=== PATIENT | female | born 1995 | race Caucasian/White ===

== ENCOUNTER → 2017-12-19 14:33 | Outpatient (CLI) | payer OTHER, SELFPAY | DX: N61.0 Mastitis without abscess (principal) | CPT/HCPCS: 76642 ==

== ENCOUNTER 2017-12-19 16:14 | Observation (INO) | payer OTHER, SELFPAY ==
[2017-12-19] VITALS (8 sets, daily range): BP systolic 114–141; BP diastolic 71–99; PULSE 73–117; RESP 14–16; TEMP 36–36.7; O2SAT 94–100; BMI 24.5; BMI 24.7; BMI 24.8
--- NOTE | 2017-12-19 16:39 | ED.DCSUM_ITS ---
- ER Visit Summary Date of Service: 12/19/17 Chief Complaint: Breast abscess History of Present Illness: The patient is a 22 F who presents with a breast abscess. She has had pain in her right breast for the past 3 weeks she has been on antibiotics for 2 weeks, today she had an ultrasound which delineated the abscess. She has no fever or chills. No shortness of breath no rash other than the localized rash around her nipple. Physical Examination: Not appear in acute distress. Moist mucous membranes, no obvious facial deformity No C-spine tenderness supple neck. Regular rate and rhythm without any obvious murmurs Right breast shows cellulitis around her nipple, she has an embedded nipple ring which I cannot remove. She has induration of fluctuance medial to the nipple. Clear lungs bilaterally speaking in full sentences without any obvious respiratory distress Abdomen soft and nontender no guarding or rebound Moves all extremities without any difficulty or pain. Skin does not show any obvious rashes or lesions, no trauma. Emergency Department Course and Treatment: Patient was made n.p.o., she had been referred to Dr. Carmichael for surgery. I contact her in the OR. Labs are drawn. Patient has an IV, she is ready for incision and drainage. Unasyn was given. Disposition: Admit to the operating room in stable condition Impression: Right breast abscess This note was generated with [employer] dictation software. It may contain incorrect words, spelling, and punctuation that were not noted in review of the chart prior to signing ED Disposition - Plan for ED Patient: Chief Complaint: Abscess Referrals: Care Physician,No Primary [Primary Care Provider] -
[2017-12-19 16:48] LABS: Absolute Lymphocyte Count 1.95 X10^3/ul (0.83-4.51); Absolute Neutrophil Count 5.5 X10^3/uL (2.0-7.7); Basophil# 0.03 X10^3/uL; Basophil% 0.3 % (0-1); Eosinophil# 0.31 X10^3/uL; Eosinophils% 3.5 % (0-5); Hematocrit 37.9 % (37-47); Lymphocyte # 1.95 X10^3/ul (4.0); Lymphocyte % 22.1 % (19-41); Mean Corp Hgb Conc 34.3 g/gl (32-36); Mean Corpuscular Hgb 26.9 pg (27.0-32.0); Mean Corpuscular Volume 78.3 fL (81-99); Mean Platelet Vol. 9.8 fl (6.2-12.0); Monocyte# 1.01 X10^3/uL; Monocyte% 11.4 % (0-10); Neutrophil # 5.53 X10^3/uL (2.7-7.7); Neutrophil % 62.6 % (47-70); Platelet Count 218 K/mm3 (150-450); RBC Distribution Width SD 36.7 fl (35.1-43.9); Red Blood Count 4.84 M/mm3 (4.2-5.4); White Blood Count 8.8 K/mm3 (4.4-11.0)
[2017-12-19 16:51] LABS: POSITIVE COUNT NO; POSITIVE DIFFERENTIAL NO; POSITIVE MORPHOLOGY NO
[2017-12-19 16:59] LABS: AST(SGOT) 11 U/L (15-37); Alanine Aminotransfer ALT/SGPT 16 U/L (13-56); Albumin, Serum 3.8 g/dL (3.2-5.0); Alkaline Phosphatase 91 U/L (45-117); Anion Gap 5 (5-15); BUN 8 mg/dL (7-18); BUN/Creat Ratio 13.1 RATIO (10-20); Calcium,Total 8.7 mg/dL (8.5-10.1); Chloride 105 mmol/L (98-107); Creatinine, Serum 0.61 mg/dL (0.55-1.02); EST Glomerular Filtration Rate 132 mL/min (>60); Est Glom Filt Rate - Afr Amer 159 mL/min (>60); Estimated Creatinine Clearance 137.72 ml/min; Globulin 3.8 g/dL (2.2-4.2); Glucose 95 mg/dL (74-106); Potassium 3.8 mmol/L (3.5-5.1); Protein, Total 7.6 g/dL (6.4-8.2); Sodium Level 139 mmol/L (136-145)
--- NOTE | 2017-12-19 17:53 | PCM.HP.BLA ---
History and Physical Date of Admission: 12/19/17 Chief Complaint: right breast abscess History of Present Illness: 22 y/o otherwise healthy WF presents with right breast abscess noted for about 3 weeks. Was seen in an outpatient clinic and treated with antibiotics starting about two weeks ago. Abscess has worsened. Denies nipple discharge. Denies fevers/chills. Denies trauma to the area. Has nipple piercings present, been there for a year. Denies previous such infections. WBC is 8.8k, afebrile Past Medical History: Denies major medical illnesses such as hypertension or diabetes Past Surgical History: Tonsillectomy and adenoidectomy Medications: diclox Allergies: Has no known drug allergies Social history: TOB use denies Student at [employer], lives with mother in [place] Review of Systems: General - denies fevers, denies anorexia Cardiovascular denies chest pain, denies heart problems Pulmonary denies shortness of breath, denies coughing up blood Gastrointestinal denies blood in stools, denies abdominal pain Neurological denies seizures Genitourinary denies blood in urine Hematological denies spontaneous/prolonged bleeding Skin see HPI Musculoskeletal denies history of fractures Endocrine denies diabetes Psychological denies hallucinations Physical examination: Vital signs Temp 97.6 HR 85 RR 16 BP 141/91 General WD/WN WF in no apparent distress, alert and oriented, not septic appearing HEENT Normocephalic. EOM intact with sclera clear and no icterus noted. Neck is supple with no jugular venous distention noted. Trachea is midline. Chest - bilateral nipple piercings - barbells, right breast - in almost its entirety is erythematous and the skin is edematous appearing, a central location (with pointing) just at medial areolar border with blue discoloration of skin (and skin thinning), fluctuant and very tender Lungs clear to auscultation. normal breath sounds. No rales/rhonchi/wheezing noted. No labored breathing noted, such as retractions. No cough heard. Heart regular Abdomen soft and benign. Extremities no pitting edema noted. No obvious deformity noted. Genitourinary/Rectal deferred Skin see above, normal skin integrity. Neurological gait normal, no focal deficits noted. Psychological normal affect, patient is calm and appropriate Impression: right breast abscess Discussion/plan: I have discussed the above with the patient, her mother and her boyfriend who is present with her. 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 I have recommended breast mastotomy for this large breast abscess that is almost involving the entire breast. The options are the following: leaving wound open and continue wound packings on a daily basis and allow healing wound by secondary intention versus placement of drain after surgery (drainage, debridement and irrigation of the wound/abscess cavity). The patient opts for latter. For either situation, patient will require follow up with a surgeon in [facility]. She understands this. I have explained the procedure to the patient. I have counseled the patient as to the risks of the procedure, including but not limited to: continued infection, bleeding, injury to any blood vessels/nerves, scar tissue, injury to the breast ducts thus compromising breast feeding in the future, cosmetic deformity, non healing requiring further surgery, etc. - patient understands. She wishes to proceed. I have answered all questions to the patients satisfaction and the patient has no further questions.
--- NOTE | 2017-12-19 19:53 | PCM.IMDPSTOP ---
Immediate Post-Op Note Date of Procedure: 12/19/17 Primary Surgeon/Physician: Alexa Carmichael director of entertainment: NOT,DEFINED Pre-Operative Diagnosis: right breast abscess Post-Operative Diagnosis: same Surgery/Procedure Performed:: right breast mastotomy Description of Surgical Findings:: large breast abscess - 15 x 17 cm with depth of 6 cm, fibrinous exudate - some necrotic fat - debrided, cavity irrigated with hydrogen peroxide Estimated Blood Loss: < 10 ml Specimen's removed: aerobic and anaerobic cultures taken of purulent discharge Drains: 15 FR round passive drain Type of Anesthesia:: General ASA Class: ASA1 Plus Emergency - Admit VTE Documentation VTE Present on Admission: Yes VTE Mechan Device Prophylaxis: SCD's
--- NOTE | 2017-12-19 19:58 | PCM.OPRPT ---
Report of Operation Date of Procedure: 12/19/17 Pre-Operative Diagnosis: right breast abscess Post-Operative Diagnosis: same Surgery/Procedure Performed:: right breast mastotomy Description of Surgical Findings:: large breast abscess - 15 x 17 cm with depth of 6 cm, fibrinous exudate - some necrotic fat - this was debrided as well as nonviable skin, there were loculations that were broken down, 60-100 cc of purulent fluid emanated - aerobic and anaerobic cultures taken, cavity irrigated with hydrogen peroxide, 41 cm of passive drain within wound cavity data center technician: NOT,DEFINED Type of Anesthesia:: General Anesthesiologist: Bernardo Betancourt Specimen's removed: aerobic and anaerobic cultures taken of purulent discharge Drains: 15 FR round passive drain Estimated Blood Loss (mL): < 10 ml Fluids Replaced: see anesthesia note Description of Procedure: After informed consent was given, the patient was brought into the Operating Room. Appropriate time out protocol was followed. The patient was placed in the supine position on the operating room table. She was placed under general anesthesia. The right breast was prepped with a sterile surgical skin preparation and sterile surgical drapes were placed. A transverse skin incision was then made with a 15 blade scalpel at the mid inner aspect of the right breast. There were small areas of necrotic skin tissue (< 1 cm squared) that were excised and subcutaneous non viable tissue was debrided by sharp dissection. There was a large amount of purulent fluid that was under pressure that emanated from the abscess cavity - 60-100 cc. Aerobic and anaerobic cultures were taken. There were loculations of the abscess cavity that the elkins were broken down by blunt finger dissection. The cavity was 15 x 17 cm with a depth of 6 cm. It was vigorously irrigated with hydrogen peroxide. Hemostasis was carefully controlled with electrocautery. A passive 15 Fr round drain was then placed with the entire drainage bed in the cavity (41cm). It was brought out via the wound. It was sutured to the skin using a nylon suture to secure it in position. The incision was then reapproximated with interrupted vertical mattress sutures of 3-0 nylon. Sterile dressings were applied. The patient was extubated and brought to the Recovery Room in stable condition. - Complications none noted - Admit VTE Documentation VTE Present on Admission: Yes VTE Mechan Device Prophylaxis: SCD's
[2017-12-19] MEDS: Ondansetron 4 MG/2 ML Vial IV (22:55)
--- NOTE | 2017-12-19 23:10 | NURSING ---
Was informed by the charge nurse Juli that pt was c/o red spots on skin. After assessing I did notice that pt had a cluster of blotchy spots on her inner thigh, abdomen, below left breast and scattered on her back. Immediately d/c'd the running Unasyn, contacted Dr. Carmichael and informed her of findings. Verbal order was to D/C the Unasyn + the Morphine and order 25 mg of Benedryl. Once verified gave pt her first round of Benedryl and removed tubing for Unasyn atb. Continued with LR @ 60.
[2017-12-19] MEDS: DiphenhydrAMINE 25 MG Capsule PO (23:24)
[2017-12-20] MEDS: HYDROcodone Bitartrate/Apap 5/325 Tablet PO ×2 (00:23→08:57)
--- NOTE | 2017-12-20 01:05 | NURSING ---
Went back in to assess pt and her allergic reaction. The redness/blotchiness has improved greatly, no longer between legs, on abdomen and under left breast. There still is a small hit of redness on upper back region.Will continue to monitor. Hung the new bag of Ancef, educated pt on signs of an allergic reaction and will continue to monitor.
[2017-12-20 01:47] VITALS: BP 107/53; PULSE 99; RESP 16; TEMP 37; O2SAT 94
[2017-12-20] MEDS: Cefazolin 1 GM/50 ML BAG IV ×2 (01:54→05:59)
[2017-12-20] MEDS: Lactated Ringers 1,000 ML 60 ML IV (05:54)
[2017-12-20 08:49] VITALS: BP 108/60; PULSE 72; RESP 16; TEMP 36.8; O2SAT 97
--- NOTE | 2017-12-20 11:10 | PCM.PN.SRG ---
Objective: Patient feeling overall OK, was concerned about reaction last night to IV meds, suspect that she doesn't have a true allergy, this may have been due to bacteremia after drainage of very large breast abscess Denies pruritis - Physical Exam General: Alert, Oriented x3 Oral: Moist Mucosa Neck: Supple Skin: - - dressing intact no seepage VALERIE output is serosanguinous Vital Signs Temp Pulse Resp BP Pulse Ox 98.2 F 72 16 108/60 97 12/20/17 08:49 12/20/17 08:49 12/20/17 08:49 12/20/17 08:49 12/20/17 08:49 Oxygen Delivery Method Room Air Weight: 69.7 kg Body Mass Index (BMI) 24.7 Intake and Output for Last 24 Hours 12/18/17 12/19/17 12/20/17 23:59 23:59 23:59 Intake Total 1000 / 1000 1771 / 1771 Output Total 10 / 10 3 / 3 Balance 990 / 990 1768 / 1768 Medical Necessity - Tobacco Use Smoking Status: Never smoker Assessment/Plan Impression: right breast abscess - POD#1 s/p mastotomy, debridement and placement of drain Plan: d/c to home, patient to follow up with me on Friday She was initially nervous about going home, but I assured her that she will be fine, given prescription for norco and augmentin - told patient that if she has any reaction to the augmentin - to stop taking it and resume diclox, I suspect that her reaction last night was a combination of her surgery/anesthesia, possibly even bacteremia due to drainage of this large abscess
--- NOTE | 2017-12-20 11:19 | PCM.DC.BS ---
Discharge Diet: No Restrictions - drink plenty of fluids Discharge Activity: Return to Normal Activity, May not drive while taking narcotic pain medications. Additional Activity Instructions:: Sponge bathe only Call your doctor if your incision/area has: Continuous Slow Oozing Call your doctor if you observe: Fever of 101 or Higher Additional Dressing/Incision Instructions:: Leave dressing in place - do not get wet. Empty VALERIE drain as needed Allergies/Adverse Reactions: Allergies ampicillin [From Unasyn] Adverse Reaction (Verified 12/20/17 05:21) Rash sulbactam [From Unasyn] Adverse Reaction (Verified 12/20/17 05:21) Rash Medications to take at Discharge Amoxicillin/Potassium Clav [Augmentin 875-125 Tablet] 1 ea PO BID 10 Days #20 tab 12/19/17 Hydrocodone/Acetaminophen [[place] 5-325 Tablet] 1 ea PO Q8H PRN PRN 5 Days #14 tab 12/19/17 The following prescriptions were given: Hydrocodone/Acetaminophen [[place] 5-325 Tablet] 1 ea PO Q8H PRN PRN 5 Days #14 tab PRN Reason: Pain Amoxicillin/Potassium Clav [Augmentin 875-125 Tablet] 1 ea PO BID 10 Days #20 tab Primary Care Physician: Care Physician,No Primary [Primary Care Provider] - Please Follow Up With: Alexa Carmichael MD - When: on FridayDecember 22, at 10:40 am
== END 2017-12-20 12:31 | disposition home or self-care (01) ==
LOC: ED 16:32 → SDC 17:52 → AC 17:56 → SDC 20:47 → MS3 20:47
PROVIDERS: Admitting Provider Surgery; Emergency Provider Emergency Medicine; Visit Provider Surgery
PROC: (CPT 19020; principal; 2017-12-19 17:50)
DX: N61.1 Abscess of the breast and nipple (principal); N64.1 Fat necrosis of breast
CPT/HCPCS: 00400; 19020; 80053; 85025; 87070; 87075; 87076; 87077; 87205; 93005; 96365; 96366; 96367; 96375; 97802; 99218; 99282; J7030; J7120; A4216; G0378; J0295; J2405